=== PATIENT | female | born 1935 | race Caucasian/White ===

== ENCOUNTER 2018-12-06 19:39 | Inpatient (IN) | payer OTHER, MEDICAID ==
[~2018-12-06] VITALS: Ht 157.5 cm; Wt 49.9 kg
[~2018-12-06 19:39] MED LIST: ACET-2634 PO; ACET325T53 PO; ASA81 PO; BISA10SU61 RC; BRI.2% OP; DOCU-144 PO; ENOX30DI4 SQ; LACT10SO7 PO; Levaquin PO; MOM PO; NA P133E41 RC; PRO40 PO; SIMV10TA6 PO; XALEYE OP
[2018-12-06 20:00] VITALS: BP_SYST 111
[2018-12-06] MEDS ORDERED: LORazepam 2 MG/ML VIAL IM ONE (21:30)
[2018-12-06 22:53] LABS: BASOPHILS % (AUTO) 0.5 % (0.0-2.0); EOSINOPHILS % (AUTO) 1.1 % (0.0-4.0); HEMATOCRIT 39.5 % (36-48); HEMOGLOBIN 13.5 g/dL (12.0-16.0); LYMPHOCYTES # (AUTO) 0.7 K/uL (1.0-5.5); LYMPHOCYTES % (AUTO) 14.8 % (20.5-51.5); MEAN CORPUSCULAR HEMOGLOBIN 29 pg (27-31); MEAN CORPUSCULAR HGB CONC 34 % (32-36); MEAN CORPUSCULAR VOLUME 85 fL (79.0-98.0); MONOCYTES # (AUTO) 0.6 K/uL (0.0-1.0); MONOCYTES % (AUTO) 12.5 % (1.7-9.3); NEUTROPHILS # (AUTO) 3.2 K/uL (1.8-7.7); NEUTROPHILS % (AUTO) 71.1 % (40.0-70.0); RED BLOOD CELL COUNT(AUTO) 4.68 MIL/uL (4.2-6.2); RED CELL DISTRIBUTION WIDTH 16.3 % (9.0-15.0); WHITE BLOOD COUNT (AUTO) 4.4 K/uL (4.8-10.8)
[2018-12-06 23:12] LABS: PLATELET COUNT (AUTO) 191 K/uL (130-430)
[2018-12-06 23:13] LABS: PROTHROMBIN TIME 10.2 SECS (9.5-12.5)
[2018-12-06 23:14] LABS: ALANINE AMINOTRANSFERASE 10 U/L (12-78); ANION GAP 6 (5-15); ASPARTATE AMINOTRANSFERASE 19 U/L (10-37); CHLORIDE 104 mmol/L (98-107); CREATININE 0.59 mg/dL (0.55-1.30); GLUCOSE 91 mg/dL (70-99); POTASSIUM 3.9 mmol/L (3.5-5.1); SODIUM SERUM 137 mmol/L (136-145); TOTAL BILIRUBIN 0.5 mg/dL (0.0-1.0); UREA NITROGEN, BLOOD 14 mg/dL (8-21)
[2018-12-06 23:18] LABS: CALCIUM 8.9 mg/dL (8.4-11.0)
[2018-12-07 07:59] LABS: BASOPHILS % (AUTO) 0.7 % (0.0-2.0); EOSINOPHILS # (AUTO) 0.1 K/uL (0.0-0.4); EOSINOPHILS % (AUTO) 2.1 % (0.0-4.0); HEMATOCRIT 36.4 % (36-48); HEMOGLOBIN 12.1 g/dL (12.0-16.0); LYMPHOCYTES # (AUTO) 0.7 K/uL (1.0-5.5); LYMPHOCYTES % (AUTO) 20.2 % (20.5-51.5); MEAN CORPUSCULAR HEMOGLOBIN 28 pg (27-31); MEAN CORPUSCULAR HGB CONC 33 % (32-36); MEAN CORPUSCULAR VOLUME 84 fL (79.0-98.0); MONOCYTES # (AUTO) 0.6 K/uL (0.0-1.0); MONOCYTES % (AUTO) 16.8 % (1.7-9.3); NEUTROPHILS # (AUTO) 2.1 K/uL (1.8-7.7); NEUTROPHILS % (AUTO) 60.2 % (40.0-70.0); PLATELET COUNT (AUTO) 176 K/uL (130-430); RED BLOOD CELL COUNT(AUTO) 4.32 MIL/uL (4.2-6.2); RED CELL DISTRIBUTION WIDTH 16.3 % (9.0-15.0); WHITE BLOOD COUNT (AUTO) 3.4 K/uL (4.8-10.8)
[2018-12-07 08:48] LABS: ALANINE AMINOTRANSFERASE 9 U/L (12-78); ALBUMIN 2.8 g/dL (3.4-4.8); ANION GAP 4 (5-15); ASPARTATE AMINOTRANSFERASE 16 U/L (10-37); CHLORIDE 104 mmol/L (98-107); CREATININE 0.62 mg/dL (0.55-1.30); GLUCOSE 82 mg/dL (70-99); POTASSIUM 3.8 mmol/L (3.5-5.1); SODIUM SERUM 135 mmol/L (136-145); TOTAL BILIRUBIN 0.4 mg/dL (0.0-1.0); UREA NITROGEN, BLOOD 12 mg/dL (8-21)
[2018-12-07 08:56] LABS: CALCIUM 8.6 mg/dL (8.4-11.0)
[2018-12-07 10:43] VITALS: BP_SYST 98
[2018-12-07] MEDS ORDERED: ACETAMINOPHEN 500 MG TABLET PO PRN (15:45)
[2018-12-07] MEDS ORDERED: MILK OF MAGNESIA 30 ML UDC PO PRN (15:45)
[2018-12-07] MEDS: ACETAMINOPHEN 325 MG TABLET PO PRN (16:14)
[2018-12-07] MEDS ORDERED: BISACODYL 10 MG/SUPPOSITORY RC PRN (16:15)
[2018-12-07] MEDS ORDERED: SODIUM PHOSPHATE,MONO-DIBASIC 133 ML ENEMA RC PRN (16:15)
[2018-12-07 16:30] VITALS: BP_SYST 126
[2018-12-07 21:00] VITALS: BP_SYST 121
[2018-12-07] MEDS: DOCUSATE SODIUM 100 MG CAPSULE PO SCH (21:00)
[2018-12-07] MEDS: LACTULOSE 20 GM/30 ML UDC PO SCH (21:00)
[2018-12-07] MEDS: LATANOPROST 2.5 ML DROPS (XALATAN) OP SCH (21:29)
[2018-12-07] MEDS: BRIMONIDINE TARTRATE 0.2% 5 mL EYE DROPS OP SCH (21:36)
[2018-12-08 00:15] VITALS: BP_SYST 104
[2018-12-08] MEDS: LORazepam 2 MG/ML VIAL IVP PRN ×2 (03:49→21:28)
[2018-12-08] MEDS: DOCUSATE SODIUM 100 MG CAPSULE PO SCH ×2 (07:59→21:23)
[2018-12-08] MEDS: SIMVASTATIN 10 MG TABLET PO SCH (07:59)
[2018-12-08] MEDS: ASPIRIN 81 MG TAB.CHEW PO SCH (07:59)
[2018-12-08] MEDS: LACTULOSE 20 GM/30 ML UDC PO SCH ×2 (07:59→21:27)
[2018-12-08] MEDS: PANTOPRAZOLE SODIUM 40 MG TAB PO SCH (07:59)
[2018-12-08 08:00] VITALS: BP_SYST 113
[2018-12-08] MEDS: ENOXAPARIN SODIUM 30 MG/0.3 ML SYRINGE SQ SCH (08:00)
[2018-12-08] MEDS: BRIMONIDINE TARTRATE 0.2% 5 mL EYE DROPS OP SCH ×2 (09:00→21:23)
[2018-12-08 12:45] VITALS: BP_SYST 109
[2018-12-08 16:00] VITALS: BP_SYST 125
[2018-12-08 20:15] VITALS: BP_SYST 127
[2018-12-08] MEDS: LATANOPROST 2.5 ML DROPS (XALATAN) OP SCH (21:22)
[2018-12-08] MEDS: ACETAMINOPHEN 325 MG TABLET PO PRN (21:24)
[2018-12-08 22:30] VITALS: BP_SYST 123
[2018-12-09] MEDS: LORazepam 2 MG/ML VIAL IVP PRN (04:45)
[2018-12-09 04:46] VITALS: BP_SYST 108
[2018-12-09 07:31] VITALS: BP_SYST 104
[2018-12-09] MEDS: BRIMONIDINE TARTRATE 0.2% 5 mL EYE DROPS OP SCH ×2 (09:00→22:46)
[2018-12-09] MEDS: PANTOPRAZOLE SODIUM 40 MG TAB PO SCH (09:12)
[2018-12-09] MEDS: LACTULOSE 20 GM/30 ML UDC PO SCH ×2 (09:12→22:38)
[2018-12-09] MEDS: DOCUSATE SODIUM 100 MG CAPSULE PO SCH ×2 (09:12→22:38)
[2018-12-09] MEDS: ASPIRIN 81 MG TAB.CHEW PO SCH (09:12)
[2018-12-09] MEDS: SIMVASTATIN 10 MG TABLET PO SCH (09:12)
[2018-12-09] MEDS: ENOXAPARIN SODIUM 30 MG/0.3 ML SYRINGE SQ SCH (09:17)
[2018-12-09 12:30] VITALS: BP_SYST 96
[2018-12-09 15:34] VITALS: BP_SYST 105
[2018-12-09] MEDS ORDERED: MORPHINE 2 MG/ML INJ. SYRINGE IVP PRN (16:00)
[2018-12-09 20:00] VITALS: BP_SYST 124
[2018-12-09] MEDS: LATANOPROST 2.5 ML DROPS (XALATAN) OP SCH (22:37)
[2018-12-10 00:21] VITALS: BP_SYST 104
[2018-12-10] MEDS: ACETAMINOPHEN 325 MG TABLET PO PRN (01:28)
[2018-12-10 04:00] VITALS: BP_SYST 117
[2018-12-10] MEDS: LORazepam 2 MG/ML VIAL IVP PRN (05:24)
[2018-12-10 08:41] VITALS: BP_SYST 148
[2018-12-10] MEDS: ASPIRIN 81 MG TAB.CHEW PO SCH (09:28)
[2018-12-10] MEDS: PANTOPRAZOLE SODIUM 40 MG TAB PO SCH (09:28)
[2018-12-10] MEDS: DOCUSATE SODIUM 100 MG CAPSULE PO SCH ×2 (09:28→20:38)
[2018-12-10] MEDS: SIMVASTATIN 10 MG TABLET PO SCH (09:28)
[2018-12-10] MEDS: LACTULOSE 20 GM/30 ML UDC PO SCH ×2 (09:28→20:38)
[2018-12-10] MEDS: ENOXAPARIN SODIUM 30 MG/0.3 ML SYRINGE SQ SCH (09:36)
[2018-12-10] MEDS: BRIMONIDINE TARTRATE 0.2% 5 mL EYE DROPS OP SCH ×2 (09:46→20:34)
[2018-12-10 11:33] VITALS: BP_SYST 98
[2018-12-10 16:00] VITALS: BP_SYST 116
[2018-12-10 20:00] VITALS: BP_SYST 141
[2018-12-10] MEDS: LATANOPROST 2.5 ML DROPS (XALATAN) OP SCH (20:34)
[2018-12-11 01:47] VITALS: BP_SYST 106
[2018-12-11 07:55] LABS: BASOPHILS % (AUTO) 0.5 % (0.0-2.0); EOSINOPHILS # (AUTO) 0.1 K/uL (0.0-0.4); EOSINOPHILS % (AUTO) 1.1 % (0.0-4.0); HEMATOCRIT 37.2 % (36-48); HEMOGLOBIN 12.3 g/dL (12.0-16.0); LYMPHOCYTES # (AUTO) 0.7 K/uL (1.0-5.5); MEAN CORPUSCULAR HEMOGLOBIN 28 pg (27-31); MEAN CORPUSCULAR HGB CONC 33 % (32-36); MEAN CORPUSCULAR VOLUME 85 fL (79.0-98.0); MONOCYTES # (AUTO) 0.6 K/uL (0.0-1.0); MONOCYTES % (AUTO) 11.6 % (1.7-9.3); NEUTROPHILS # (AUTO) 3.5 K/uL (1.8-7.7); NEUTROPHILS % (AUTO) 71.8 % (40.0-70.0); PLATELET COUNT (AUTO) 187 K/uL (130-430); RED BLOOD CELL COUNT(AUTO) 4.39 MIL/uL (4.2-6.2); WHITE BLOOD COUNT (AUTO) 4.9 K/uL (4.8-10.8)
[2018-12-11 08:00] VITALS: BP_SYST 109
[2018-12-11 08:08] LABS: CALCIUM 8.5 mg/dL (8.4-11.0); CHLORIDE 101 mmol/L (98-107); CREATININE 0.65 mg/dL (0.55-1.30); GLUCOSE 95 mg/dL (70-99); POTASSIUM 4.2 mmol/L (3.5-5.1); SODIUM SERUM 132 mmol/L (136-145); UREA NITROGEN, BLOOD 18 mg/dL (8-21)
[2018-12-11 08:09] LABS: ANION GAP < 3 (5-15)
[2018-12-11] MEDS: DOCUSATE SODIUM 100 MG CAPSULE PO SCH ×2 (08:17→22:20)
[2018-12-11] MEDS: LACTULOSE 20 GM/30 ML UDC PO SCH ×2 (08:17→22:20)
[2018-12-11] MEDS: PANTOPRAZOLE SODIUM 40 MG TAB PO SCH (08:17)
[2018-12-11] MEDS: BRIMONIDINE TARTRATE 0.2% 5 mL EYE DROPS OP SCH ×2 (08:17→22:22)
[2018-12-11] MEDS: SIMVASTATIN 10 MG TABLET PO SCH (08:17)
[2018-12-11] MEDS: ASPIRIN 81 MG TAB.CHEW PO SCH (08:17)
[2018-12-11] MEDS: ENOXAPARIN SODIUM 30 MG/0.3 ML SYRINGE SQ SCH (08:19)
[2018-12-11 12:00] VITALS: BP_SYST 108
[2018-12-11 17:09] VITALS: BP_SYST 109
[2018-12-11] MEDS: LATANOPROST 2.5 ML DROPS (XALATAN) OP SCH (22:22)
[2018-12-11 22:53] VITALS: BP_SYST 105
[2018-12-12 02:04] VITALS: BP_SYST 126
[2018-12-12 08:00] VITALS: BP_SYST 123
[2018-12-12] MEDS: SIMVASTATIN 10 MG TABLET PO SCH (09:00)
[2018-12-12] MEDS: DOCUSATE SODIUM 100 MG CAPSULE PO SCH ×2 (09:00→22:42)
[2018-12-12] MEDS: LACTULOSE 20 GM/30 ML UDC PO SCH ×2 (09:00→22:42)
[2018-12-12] MEDS: PANTOPRAZOLE SODIUM 40 MG TAB PO SCH (09:00)
[2018-12-12] MEDS: BRIMONIDINE TARTRATE 0.2% 5 mL EYE DROPS OP SCH ×2 (09:00→22:41)
[2018-12-12] MEDS: ASPIRIN 81 MG TAB.CHEW PO SCH (09:00)
[2018-12-12] MEDS: ENOXAPARIN SODIUM 30 MG/0.3 ML SYRINGE SQ SCH (10:02)
[2018-12-12 11:14] VITALS: BP_SYST 147
[2018-12-12 15:09] VITALS: BP_SYST 120
[2018-12-12 20:00] VITALS: BP_SYST 106
[2018-12-12] MEDS: LATANOPROST 2.5 ML DROPS (XALATAN) OP SCH (22:41)
[2018-12-12 22:55] VITALS: BP_SYST 108
[2018-12-13 07:26] VITALS: BP_SYST 142
[2018-12-13 08:02] VITALS: BP_SYST 118
[2018-12-13] MEDS: PANTOPRAZOLE SODIUM 40 MG TAB PO SCH (09:10)
[2018-12-13] MEDS: SIMVASTATIN 10 MG TABLET PO SCH (09:10)
[2018-12-13] MEDS: ASPIRIN 81 MG TAB.CHEW PO SCH (09:10)
[2018-12-13] MEDS: DOCUSATE SODIUM 100 MG CAPSULE PO SCH (09:10)
[2018-12-13] MEDS: BRIMONIDINE TARTRATE 0.2% 5 mL EYE DROPS OP SCH (09:14)
[2018-12-13] MEDS: LACTULOSE 20 GM/30 ML UDC PO SCH (09:14)
[2018-12-13] MEDS: ENOXAPARIN SODIUM 30 MG/0.3 ML SYRINGE SQ SCH (09:18)
[2018-12-13 11:08] VITALS: BP_SYST 95
[2018-12-13 14:59] VITALS: BP_SYST 142
== END 2018-12-13 17:30 | DRG 71 ==
LOC: SED 19:39 → STU 12-07 00:42 → SMU 12-10 10:30
PROVIDERS: ADMIT Internal Medicine; ATTEND Internal Medicine
DX: G93.41 Metabolic encephalopathy (principal); F03.91 Unspecified dementia, unspecified severity, with behavioral disturbance; R40.2353 Coma scale, best motor response, localizes pain, at hospital admission; S09.90XA Unspecified injury of head, initial encounter; E78.5 Hyperlipidemia, unspecified; M19.90 Unspecified osteoarthritis, unspecified site; I25.10 Atherosclerotic heart disease of native coronary artery without angina pectoris; M21.959 Unspecified acquired deformity of unspecified thigh; K44.9 Diaphragmatic hernia without obstruction or gangrene; W18.39XA Other fall on same level, initial encounter; Y93.89 Activity, other specified; Y92.89 Other specified places as the place of occurrence of the external cause; Z74.01 Bed confinement status; Z79.82 Long term (current) use of aspirin; Z86.73 Personal history of transient ischemic attack (TIA), and cerebral infarction without residual deficits; Z87.11 Personal history of peptic ulcer disease; Y99.8 Other external cause status; I11.9 Hypertensive heart disease without heart failure
CPT/HCPCS: 36415; 70450-TC; 70486-TC; 71045; 72125-TC; 80048; 80053; 82550-TC; 83880; 84484; 85025; 85610-TC; 85730-TC; 87081; 93005; 93306; 96372; 99285; G0378; J1650; J2060; J2270

== ENCOUNTER 2019-04-12 23:26 | Emergency (ER) | payer OTHER, MEDICAID ==
[~2019-04-12] VITALS: Ht 165.1 cm; Wt 54.4 kg
[2019-04-12 23:29] VITALS: BP_SYST 128
[2019-04-13 00:21] LABS: BASOPHILS % (AUTO) 0.6 % (0.0-2.0); EOSINOPHILS # (AUTO) 0.1 K/uL (0.0-0.4); EOSINOPHILS % (AUTO) 1.7 % (0.0-4.0); HEMATOCRIT 36.3 % (36-48); HEMOGLOBIN 12.1 g/dL (12.0-16.0); LYMPHOCYTES % (AUTO) 24.4 % (20.5-51.5); MEAN CORPUSCULAR HEMOGLOBIN 28 pg (27-31); MEAN CORPUSCULAR HGB CONC 33 % (32-36); MEAN CORPUSCULAR VOLUME 85 fL (79.0-98.0); MONOCYTES # (AUTO) 0.5 K/uL (0.0-1.0); MONOCYTES % (AUTO) 11.5 % (1.7-9.3); NEUTROPHILS # (AUTO) 2.5 K/uL (1.8-7.7); NEUTROPHILS % (AUTO) 61.8 % (40.0-70.0); PLATELET COUNT (AUTO) 217 K/uL (130-430); RED BLOOD CELL COUNT(AUTO) 4.28 MIL/uL (4.2-6.2); RED CELL DISTRIBUTION WIDTH 15.5 % (9.0-15.0)
[2019-04-13 00:30] LABS: ANION GAP 10 (5-15); CALCIUM 8.4 mg/dL (8.4-11.0); CHLORIDE 103 mmol/L (98-107); CREATININE 0.32 mg/dL (0.55-1.30); GLUCOSE 89 mg/dL (70-99); POTASSIUM 3.4 mmol/L (3.5-5.1); SODIUM SERUM 137 mmol/L (136-145); UREA NITROGEN, BLOOD 20 mg/dL (8-21)
[2019-04-13 00:36] LABS: ALANINE AMINOTRANSFERASE 12 U/L (12-78); ASPARTATE AMINOTRANSFERASE 24 U/L (10-37); TOTAL BILIRUBIN 0.6 mg/dL (0.0-1.0)
[2019-04-13 00:39] LABS: ACETAMINOPHEN < 1 ug/mL (1-30); ALCOHOL, BLOOD < 3 mg/dL (<10)
--- NOTE | 2019-04-13 02:00 | NUR ---
Pt biba to bed 8 for evaluation
--- NOTE | 2019-04-13 02:00 | NUR ---
Pt sent from [facility] for medical clearance r/t poor appetite, striking out at staff, and angry outbursts, prior to placement in [facility]. Pt alert and does not make eye contact. Pt calm, does not appear to be in any distress at this time.
--- NOTE | 2019-04-13 02:00 | NUR ---
Note katy in EDM - 04/13/19 at 0334 by RODRIGUE Pt sent from [facility] for medical clearance r/t poor appetite, striking out at staff, and angry outbursts, prior to placement in [facility]. Pt alert and does not make eye contact. Pt calm, denies c/o pain or discomfort and no needs verbalized.
--- NOTE | 2019-04-13 02:10 | NUR ---
Dr. Bell at bedside.
--- NOTE | 2019-04-13 03:25 | NUR ---
Specimen collected for MRSA and sent to lab.
[2019-04-13 04:00] VITALS: BP_SYST 124
--- NOTE | 2019-04-13 04:00 | NUR ---
Patient given written and verbal discharge instructions and verbalizes understanding. ER MD discussed with patient the results and treatment provided. Patient in stable condition. ID arm band removed. NO IV No RX given. Patient educated on pain management and to follow up with PMD. Pain Scale 0/10. Pt medically cleared. Opportunity for questions provided and answered. Medication side effect fact sheet provided.
[2019-04-13 09:13] LABS: CHOLESTEROL 224 mg/dL (<200); HDL CHOLESTEROL 125 mg/dL (>55); LDL CHOLESTEROL 81 mg/dL (<100); TRIGLYCERIDES 44 mg/dL (30-150)
== END 2019-04-13 04:00 ==
LOC: SED 23:26
DX: F03.90 Unspecified dementia, unspecified severity, without behavioral disturbance, psychotic disturbance, mood disturbance, and anxiety (principal); E11.9 Type 2 diabetes mellitus without complications; Z79.82 Long term (current) use of aspirin; Z79.899 Other long term (current) drug therapy
CPT/HCPCS: 36415; 80053; 80061; 82140; 83036; 85025; 87081; 99285; G0480; G0481; G0482

== ENCOUNTER 2019-05-11 17:43 | Inpatient (IN) | payer MEDICAID, OTHER ==
[~2019-05-11] VITALS: Ht 157.5 cm; Wt 41.3 kg
[2019-05-11 17:45] VITALS: BP_SYST 118
[2019-05-11] MEDS ORDERED: ASCO500T20 PO (18:14)
[2019-05-11] MEDS ORDERED: BRI.2% EACH EYE (18:14)
[2019-05-11] MEDS ORDERED: DONE10TA44 PO (18:14)
[2019-05-11] MEDS ORDERED: [UNRECOGNIZED DRUG - OTHER] (18:17)
[2019-05-11] MEDS ORDERED: fentaNYL CITRATE/PF 100 MCG/2 ML AMP IVP ONE (18:30)
[2019-05-11 18:50] LABS: BASOPHILS % (AUTO) 0.4 % (0.0-2.0); HEMATOCRIT 43.5 % (36-48); HEMOGLOBIN 14.5 g/dL (12.0-16.0); LYMPHOCYTES # (AUTO) 0.5 K/uL (1.0-5.5); LYMPHOCYTES % (AUTO) 7.5 % (20.5-51.5); MEAN CORPUSCULAR HEMOGLOBIN 28 pg (27-31); MEAN CORPUSCULAR HGB CONC 33 % (32-36); MEAN CORPUSCULAR VOLUME 85 fL (79.0-98.0); MONOCYTES # (AUTO) 0.6 K/uL (0.0-1.0); MONOCYTES % (AUTO) 9.6 % (1.7-9.3); NEUTROPHILS # (AUTO) 5.5 K/uL (1.8-7.7); NEUTROPHILS % (AUTO) 82.5 % (40.0-70.0); PLATELET COUNT (AUTO) 261 K/uL (130-430); RED BLOOD CELL COUNT(AUTO) 5.15 MIL/uL (4.2-6.2); RED CELL DISTRIBUTION WIDTH 15.5 % (9.0-15.0); WHITE BLOOD COUNT (AUTO) 6.7 K/uL (4.8-10.8)
[2019-05-11 19:05] LABS: ANION GAP 9 (5-15); CALCIUM 8.8 mg/dL (8.4-11.0); CHLORIDE 106 mmol/L (98-107); CREATININE 0.72 mg/dL (0.55-1.30); GLUCOSE 172 mg/dL (70-99); POTASSIUM 3.2 mmol/L (3.5-5.1); SODIUM SERUM 141 mmol/L (136-145); UREA NITROGEN, BLOOD 25 mg/dL (8-21)
[2019-05-11 19:11] LABS: ALANINE AMINOTRANSFERASE 17 U/L (12-78); ALBUMIN 3.3 g/dL (3.4-4.8); ASPARTATE AMINOTRANSFERASE 26 U/L (10-37); TOTAL BILIRUBIN 0.5 mg/dL (0.0-1.0)
[2019-05-11 20:37] LABS: PROTHROMBIN TIME 10.3 SECS (9.5-12.5)
[2019-05-11 21:41] VITALS: BP_SYST 141
[2019-05-11] MEDS ORDERED: ACETAMINOPHEN 500 MG TABLET PO PRN (22:15)
[2019-05-11] MEDS ORDERED: ACETAMINOPHEN 325 MG TABLET PO PRN (22:15)
[2019-05-11] MEDS ORDERED: BISACODYL 10 MG/SUPPOSITORY RC PRN (22:15)
[2019-05-11] MEDS: D5/0.45 NS 1,000 ML IV SCH (22:33)
[2019-05-11] MEDS: POTASSIUM CHLORIDE 20 MEQ/PKT PACKET PO ONE ×2 (22:42→22:45)
[2019-05-12] VITALS: BP_SYST 159
[2019-05-12] MEDS ORDERED: KCL 20 mEq in 100 mL (PREMIX) 100 ML IV ONE (05:00)
[2019-05-12 06:53] LABS: BASOPHILS % (AUTO) 0.2 % (0.0-2.0); HEMATOCRIT 41.4 % (36-48); HEMOGLOBIN 13.6 g/dL (12.0-16.0); LYMPHOCYTES # (AUTO) 0.3 K/uL (1.0-5.5); LYMPHOCYTES % (AUTO) 5.1 % (20.5-51.5); MEAN CORPUSCULAR HEMOGLOBIN 28 pg (27-31); MEAN CORPUSCULAR HGB CONC 33 % (32-36); MEAN CORPUSCULAR VOLUME 84 fL (79.0-98.0); MONOCYTES # (AUTO) 0.4 K/uL (0.0-1.0); MONOCYTES % (AUTO) 6.7 % (1.7-9.3); NEUTROPHILS # (AUTO) 5.8 K/uL (1.8-7.7); PLATELET COUNT (AUTO) 239 K/uL (130-430); RED BLOOD CELL COUNT(AUTO) 4.91 MIL/uL (4.2-6.2); RED CELL DISTRIBUTION WIDTH 15.7 % (9.0-15.0); WHITE BLOOD COUNT (AUTO) 6.6 K/uL (4.8-10.8)
[2019-05-12 07:38] LABS: ALANINE AMINOTRANSFERASE 19 U/L (12-78); ALBUMIN 3.1 g/dL (3.4-4.8); ANION GAP 11 (5-15); ASPARTATE AMINOTRANSFERASE 22 U/L (10-37); CALCIUM 8.7 mg/dL (8.4-11.0); CHLORIDE 107 mmol/L (98-107); CREATININE 0.68 mg/dL (0.55-1.30); GLUCOSE 158 mg/dL (70-99); SODIUM SERUM 144 mmol/L (136-145); TOTAL BILIRUBIN 0.5 mg/dL (0.0-1.0); UREA NITROGEN, BLOOD 28 mg/dL (8-21)
[2019-05-12 07:50] VITALS: BP_SYST 87
[2019-05-12 08:24] LABS: POTASSIUM 2.9 mmol/L (3.5-5.1)
[2019-05-12] MEDS ORDERED: POTASSIUM CHLORIDE 20 MEQ TAB.PRT.SR PO ONE (08:45)
[2019-05-12] MEDS ORDERED: POTASSIUM CHLORIDE 40 MEQ in D5W 250 ML IV ONE (08:45)
[2019-05-12] MEDS: BRIMONIDINE TARTRATE 0.2% 5 mL EYE DROPS EACH EYE SCH ×2 (09:00→21:21)
[2019-05-12] MEDS: ASPIRIN 81 MG TAB.CHEW PO SCH (09:00)
[2019-05-12] MEDS: LACTULOSE 20 GM/30 ML UDC PO SCH ×3 (09:00→21:21)
[2019-05-12] MEDS: ASCORBIC ACID 500 MG TABLET PO SCH (09:00)
[2019-05-12] MEDS: PANTOPRAZOLE SODIUM 40 MG TAB PO SCH (09:00)
[2019-05-12] MEDS: DOCUSATE SODIUM 100 MG CAPSULE PO SCH ×3 (09:00→21:21)
[2019-05-12] MEDS: QUEtiapine FUMARATE 25 MG TABLET PO SCH ×3 (12:16→21:21)
[2019-05-12] MEDS: ENOXAPARIN SODIUM 30 MG/0.3 ML SYRINGE SQ SCH (12:17)
[2019-05-12 12:50] VITALS: BP_SYST 130
[2019-05-12 16:20] VITALS: BP_SYST 138
[2019-05-12] MEDS: D5/0.45 NS 1,000 ML IV SCH (17:59)
[2019-05-12 20:00] VITALS: BP_SYST 158
[2019-05-12] MEDS: DONEPEZIL HCL 5 MG TABLET (ARICEPT) PO SCH ×2 (21:00→21:20)
[2019-05-12] MEDS: SIMVASTATIN 10 MG TABLET PO SCH ×2 (21:00→21:20)
[2019-05-13 00:46] VITALS: BP_SYST 131
[2019-05-13] MEDS: KCL 20 mEq in D5/0.45NS 1000mL 1,000 ML IV SCH (06:10)
[2019-05-13] MEDS ORDERED: KCL 20 mEq in D5/0.45NS 1000mL 1,000 ML IV ONE (06:19)
[2019-05-13 06:53] LABS: BASOPHILS % (AUTO) 0.6 % (0.0-2.0); EOSINOPHILS % (AUTO) 0.8 % (0.0-4.0); HEMATOCRIT 36.3 % (36-48); HEMOGLOBIN 12.1 g/dL (12.0-16.0); LYMPHOCYTES # (AUTO) 0.8 K/uL (1.0-5.5); LYMPHOCYTES % (AUTO) 21.2 % (20.5-51.5); MEAN CORPUSCULAR HEMOGLOBIN 28 pg (27-31); MEAN CORPUSCULAR HGB CONC 33 % (32-36); MEAN CORPUSCULAR VOLUME 84 fL (79.0-98.0); MONOCYTES # (AUTO) 0.4 K/uL (0.0-1.0); MONOCYTES % (AUTO) 10.7 % (1.7-9.3); NEUTROPHILS # (AUTO) 2.5 K/uL (1.8-7.7); NEUTROPHILS % (AUTO) 66.7 % (40.0-70.0); PLATELET COUNT (AUTO) 188 K/uL (130-430); RED BLOOD CELL COUNT(AUTO) 4.33 MIL/uL (4.2-6.2); RED CELL DISTRIBUTION WIDTH 15.5 % (9.0-15.0); WHITE BLOOD COUNT (AUTO) 3.8 K/uL (4.8-10.8)
[2019-05-13 07:23] LABS: ALANINE AMINOTRANSFERASE 18 U/L (12-78); ALBUMIN 2.8 g/dL (3.4-4.8); ANION GAP 6 (5-15); ASPARTATE AMINOTRANSFERASE 24 U/L (10-37); CALCIUM 8.2 mg/dL (8.4-11.0); CHLORIDE 106 mmol/L (98-107); CREATININE 0.47 mg/dL (0.55-1.30); GLUCOSE 100 mg/dL (70-99); POTASSIUM 3.7 mmol/L (3.5-5.1); SODIUM SERUM 138 mmol/L (136-145); TOTAL BILIRUBIN 0.5 mg/dL (0.0-1.0); UREA NITROGEN, BLOOD 25 mg/dL (8-21)
[2019-05-13] MEDS: QUEtiapine FUMARATE 25 MG TABLET PO SCH ×3 (09:56→21:08)
[2019-05-13] MEDS: ASCORBIC ACID 500 MG TABLET PO SCH (09:57)
[2019-05-13] MEDS: DOCUSATE SODIUM 100 MG CAPSULE PO SCH ×3 (09:57→21:08)
[2019-05-13] MEDS: LACTULOSE 20 GM/30 ML UDC PO SCH ×3 (09:57→21:08)
[2019-05-13] MEDS: PANTOPRAZOLE SODIUM 40 MG TAB PO SCH (09:57)
[2019-05-13] MEDS: ASPIRIN 81 MG TAB.CHEW PO SCH (09:57)
[2019-05-13] MEDS: ENOXAPARIN SODIUM 30 MG/0.3 ML SYRINGE SQ SCH (10:03)
[2019-05-13] MEDS: BRIMONIDINE TARTRATE 0.2% 5 mL EYE DROPS EACH EYE SCH ×2 (11:58→21:08)
[2019-05-13 12:00] VITALS: BP_SYST 144
[2019-05-13 16:00] VITALS: BP_SYST 150
[2019-05-13 20:52] VITALS: BP_SYST 155
[2019-05-13] MEDS: DONEPEZIL HCL 5 MG TABLET (ARICEPT) PO SCH ×2 (21:00→21:08)
[2019-05-13] MEDS: SIMVASTATIN 10 MG TABLET PO SCH ×2 (21:00→21:08)
[2019-05-14] MEDS: KCL 20 mEq in D5/0.45NS 1000mL 1,000 ML IV SCH ×2 (00:26→22:23)
[2019-05-14 00:46] VITALS: BP_SYST 142
[2019-05-14 07:14] LABS: BASOPHILS % (AUTO) 0.5 % (0.0-2.0); EOSINOPHILS % (AUTO) 0.7 % (0.0-4.0); HEMOGLOBIN 13.1 g/dL (12.0-16.0); LYMPHOCYTES # (AUTO) 0.7 K/uL (1.0-5.5); LYMPHOCYTES % (AUTO) 14.1 % (20.5-51.5); MEAN CORPUSCULAR HEMOGLOBIN 28 pg (27-31); MEAN CORPUSCULAR HGB CONC 33 % (32-36); MEAN CORPUSCULAR VOLUME 85 fL (79.0-98.0); MONOCYTES # (AUTO) 0.4 K/uL (0.0-1.0); NEUTROPHILS # (AUTO) 3.7 K/uL (1.8-7.7); NEUTROPHILS % (AUTO) 75.7 % (40.0-70.0); PLATELET COUNT (AUTO) 191 K/uL (130-430); RED BLOOD CELL COUNT(AUTO) 4.68 MIL/uL (4.2-6.2); RED CELL DISTRIBUTION WIDTH 15.7 % (9.0-15.0); WHITE BLOOD COUNT (AUTO) 4.8 K/uL (4.8-10.8)
[2019-05-14 08:14] VITALS: BP_SYST 155
[2019-05-14] MEDS: ASPIRIN 81 MG TAB.CHEW PO SCH ×2 (09:00→09:23)
[2019-05-14] MEDS: DOCUSATE SODIUM 100 MG CAPSULE PO SCH ×3 (09:00→21:00)
[2019-05-14] MEDS: ASCORBIC ACID 500 MG TABLET PO SCH ×2 (09:00→09:23)
[2019-05-14] MEDS ORDERED: BISACODYL 5 MG TABLET.DR (DULCOLAX) PO ONE (09:00)
[2019-05-14] MEDS: PANTOPRAZOLE SODIUM 40 MG TAB PO SCH ×2 (09:00→09:24)
[2019-05-14] MEDS: QUEtiapine FUMARATE 25 MG TABLET PO SCH ×2 (09:00→09:23)
[2019-05-14] MEDS: THEOPHYLLINE ANHYDROUS 200 MG CAP.ER.24H PO SCH ×2 (09:00→21:00)
[2019-05-14 09:07] LABS: ANION GAP 7 (5-15); CHLORIDE 106 mmol/L (98-107); GLUCOSE 113 mg/dL (70-99); POTASSIUM 4.1 mmol/L (3.5-5.1); SODIUM SERUM 138 mmol/L (136-145)
[2019-05-14 09:08] LABS: ALANINE AMINOTRANSFERASE 15 U/L (12-78); ASPARTATE AMINOTRANSFERASE 28 U/L (10-37); CALCIUM 8.2 mg/dL (8.4-11.0); CREATININE 0.46 mg/dL (0.55-1.30); TOTAL BILIRUBIN 0.6 mg/dL (0.0-1.0); UREA NITROGEN, BLOOD 17 mg/dL (8-21)
[2019-05-14 09:10] LABS: ALBUMIN 2.8 g/dL (3.4-4.8)
[2019-05-14] MEDS: ENOXAPARIN SODIUM 30 MG/0.3 ML SYRINGE SQ SCH (09:23)
[2019-05-14] MEDS: LACTULOSE 20 GM/30 ML UDC PO SCH ×2 (09:24→21:00)
[2019-05-14] MEDS: BRIMONIDINE TARTRATE 0.2% 5 mL EYE DROPS EACH EYE SCH ×2 (09:27→22:31)
[2019-05-14 12:23] VITALS: BP_SYST 151
[2019-05-14 16:50] VITALS: BP_SYST 147
[2019-05-14 20:05] VITALS: BP_SYST 138
[2019-05-14] MEDS: SIMVASTATIN 10 MG TABLET PO SCH (21:00)
[2019-05-14] MEDS: DONEPEZIL HCL 5 MG TABLET (ARICEPT) PO SCH (21:00)
[2019-05-15 00:56] VITALS: BP_SYST 139
[2019-05-15 06:45] LABS: BASOPHILS % (AUTO) 0.3 % (0.0-2.0); EOSINOPHILS % (AUTO) 0.3 % (0.0-4.0); HEMATOCRIT 40.5 % (36-48); HEMOGLOBIN 13.6 g/dL (12.0-16.0); LYMPHOCYTES # (AUTO) 0.6 K/uL (1.0-5.5); LYMPHOCYTES % (AUTO) 11.5 % (20.5-51.5); MEAN CORPUSCULAR HEMOGLOBIN 28 pg (27-31); MEAN CORPUSCULAR HGB CONC 34 % (32-36); MEAN CORPUSCULAR VOLUME 84 fL (79.0-98.0); MONOCYTES # (AUTO) 0.5 K/uL (0.0-1.0); MONOCYTES % (AUTO) 9.7 % (1.7-9.3); NEUTROPHILS # (AUTO) 4.3 K/uL (1.8-7.7); NEUTROPHILS % (AUTO) 78.2 % (40.0-70.0); PLATELET COUNT (AUTO) 225 K/uL (130-430); RED BLOOD CELL COUNT(AUTO) 4.84 MIL/uL (4.2-6.2); RED CELL DISTRIBUTION WIDTH 15.3 % (9.0-15.0); WHITE BLOOD COUNT (AUTO) 5.4 K/uL (4.8-10.8)
[2019-05-15 07:31] LABS: ALANINE AMINOTRANSFERASE 15 U/L (12-78); ALBUMIN 2.8 g/dL (3.4-4.8); ANION GAP 7 (5-15); ASPARTATE AMINOTRANSFERASE 19 U/L (10-37); CALCIUM 8.1 mg/dL (8.4-11.0); CHLORIDE 107 mmol/L (98-107); CREATININE 0.49 mg/dL (0.55-1.30); GLUCOSE 116 mg/dL (70-99); POTASSIUM 3.4 mmol/L (3.5-5.1); SODIUM SERUM 139 mmol/L (136-145); TOTAL BILIRUBIN 0.5 mg/dL (0.0-1.0); UREA NITROGEN, BLOOD 17 mg/dL (8-21)
[2019-05-15 08:00] VITALS: BP_SYST 140
[2019-05-15] MEDS: BRIMONIDINE TARTRATE 0.2% 5 mL EYE DROPS EACH EYE SCH ×2 (08:51→20:59)
[2019-05-15] MEDS: ENOXAPARIN SODIUM 30 MG/0.3 ML SYRINGE SQ SCH (08:52)
[2019-05-15] MEDS: ASPIRIN 81 MG TAB.CHEW PO SCH (08:57)
[2019-05-15] MEDS: LACTULOSE 20 GM/30 ML UDC PO SCH ×2 (08:57→20:59)
[2019-05-15] MEDS: DOCUSATE SODIUM 100 MG CAPSULE PO SCH ×2 (08:57→20:59)
[2019-05-15] MEDS: ASCORBIC ACID 500 MG TABLET PO SCH (08:58)
[2019-05-15] MEDS: QUEtiapine FUMARATE 25 MG TABLET PO SCH ×2 (08:58→20:59)
[2019-05-15] MEDS: PANTOPRAZOLE SODIUM 40 MG TAB PO SCH (08:58)
[2019-05-15] MEDS: THEOPHYLLINE ANHYDROUS 200 MG CAP.ER.24H PO SCH ×2 (08:58→20:59)
[2019-05-15 12:42] VITALS: BP_SYST 142
[2019-05-15] MEDS: HALOPERIDOL LACTATE 5 MG/ML VIAL IVP SCH ×2 (14:56→20:54)
[2019-05-15 16:17] VITALS: BP_SYST 133
[2019-05-15] MEDS: KCL 20 mEq in D5/0.45NS 1000mL 1,000 ML IV SCH (20:46)
[2019-05-15] MEDS: DONEPEZIL HCL 5 MG TABLET (ARICEPT) PO SCH (20:59)
[2019-05-15 21:00] VITALS: BP_SYST 144
[2019-05-15] MEDS: SIMVASTATIN 10 MG TABLET PO SCH (21:00)
[2019-05-16 01:12] VITALS: BP_SYST 149
[2019-05-16 08:26] LABS: ANION GAP 6 (5-15); CALCIUM 7.3 mg/dL (8.4-11.0); CHLORIDE 109 mmol/L (98-107); CREATININE 0.52 mg/dL (0.55-1.30); GLUCOSE 122 mg/dL (70-99); POTASSIUM 3.2 mmol/L (3.5-5.1); SODIUM SERUM 141 mmol/L (136-145); UREA NITROGEN, BLOOD 18 mg/dL (8-21)
[2019-05-16] MEDS: HALOPERIDOL LACTATE 5 MG/ML VIAL IVP SCH (09:00)
[2019-05-16] MEDS: LACTULOSE 20 GM/30 ML UDC PO SCH (09:00)
[2019-05-16] MEDS: DOCUSATE SODIUM 100 MG CAPSULE PO SCH (09:00)
[2019-05-16 09:13] VITALS: BP_SYST 146
[2019-05-16] MEDS: ASPIRIN 81 MG TAB.CHEW PO SCH (09:35)
[2019-05-16] MEDS: PANTOPRAZOLE SODIUM 40 MG TAB PO SCH (09:35)
[2019-05-16] MEDS: BRIMONIDINE TARTRATE 0.2% 5 mL EYE DROPS EACH EYE SCH (09:35)
[2019-05-16] MEDS: QUEtiapine FUMARATE 25 MG TABLET PO SCH (09:35)
[2019-05-16] MEDS: ASCORBIC ACID 500 MG TABLET PO SCH (09:35)
[2019-05-16] MEDS: THEOPHYLLINE ANHYDROUS 200 MG CAP.ER.24H PO SCH (09:38)
[2019-05-16] MEDS: ENOXAPARIN SODIUM 30 MG/0.3 ML SYRINGE SQ SCH (09:42)
[2019-05-16] MEDS ORDERED: HALOPERIDOL LACTATE 5 MG/ML VIAL IVP PRN (09:45)
[2019-05-16 12:01] VITALS: BP_SYST 112
[2019-05-16] MEDS: KCL 20 mEq in D5/0.45NS 1000mL 1,000 ML IV SCH (13:34)
[2019-05-16 15:08] VITALS: BP_SYST 112
[2019-05-16 16:20] VITALS: BP_SYST 123
== END 2019-05-16 16:30 | DRG 393 ==
LOC: SED 17:43 → SMU 19:41 → STU 05-14 02:29
PROVIDERS: ADMIT Internal Medicine; ATTEND Internal Medicine
DX: K43.6 Other and unspecified ventral hernia with obstruction, without gangrene (principal); E43 Unspecified severe protein-calorie malnutrition; F03.91 Unspecified dementia, unspecified severity, with behavioral disturbance; Z68.1 Body mass index [BMI] 19.9 or less, adult; K44.0 Diaphragmatic hernia with obstruction, without gangrene; E11.9 Type 2 diabetes mellitus without complications; D63.8 Anemia in other chronic diseases classified elsewhere; E78.5 Hyperlipidemia, unspecified; R62.7 Adult failure to thrive; I10 Essential (primary) hypertension; K56.41 Fecal impaction; R00.1 Bradycardia, unspecified; E87.6 Hypokalemia; M81.0 Age-related osteoporosis without current pathological fracture; I25.10 Atherosclerotic heart disease of native coronary artery without angina pectoris; I25.2 Old myocardial infarction; Z86.73 Personal history of transient ischemic attack (TIA), and cerebral infarction without residual deficits; Z87.11 Personal history of peptic ulcer disease; Z74.01 Bed confinement status; Z79.01 Long term (current) use of anticoagulants; Z91.19 Patient's noncompliance with other medical treatment and regimen; Z79.899 Other long term (current) drug therapy; Z79.82 Long term (current) use of aspirin
CPT/HCPCS: 36415; 71045; 80048; 80053; 83605; 83735-TC; 84484; 85025; 85610-TC; 85730-TC; 87081; 93005; 96374; 99291; G0378; J1630; J1650; J3010; J3480; J7060